=== PATIENT | male | born 1990 | race African-American/Black ===

== ENCOUNTER 2018-04-02 10:36 | Emergency (ER) | payer OTHER, SELFPAY ==
[2018-04-02 10:46] VITALS: BP 100/60; PULSE 98; RESP 14; TEMP 36.7; O2SAT 100; BMI 23.6
--- NOTE | 2018-04-02 12:09 | ED.NAVMDI ---
HPI - Nausea/Vomiting/Diarrhea General Chief complaint: Nausea/Vomiting/Diarrhea Stated complaint: nauseous Time Seen by Provider: 04/02/18 10:43 History of Present Illness HPI Narrative: HPI 27-year-old male with no known pertinent past medical history presents for evaluation of mild nausea without emesis that is been present for one half day. Patient notes that last night he had one loose large watery bowel movement and had a gradual onset of nausea afterwards. Patient is concerned he may vomit later today. Patient denies fevers, chills. Patient continues to be able take liquids well is producing urine at baseline. M/S/F/SocHx notable for: please see HPI; remainder reviewed with patient and in chart. ROS: Negative constitutional, eye, cardiovascular, pulmonary, GI, , MSK, skin, neurologic, psychiatric, endocrine unless noted in the HPI. Exam Gen: Pleasant, non-toxic appearing, resting comfortably. HEENT: NC, AT, PEERL, EOMI, neck supple with full range of movement. Resp: Clear to auscultation bilaterally, normal work of breathing, no accessory muscle usage. Card: Regular rate and rhythm with no murmurs, rubs, or gallops, extremities warm and well perfused. GI: Non-tender to palpation throughout all quadrants, no focal tenderness at McBurney's point, negative Estevez's sign, non-distended, no rebound or guarding. : No suprapubic tenderness to palpation.No CVA tenderness to percussion bilaterally.Deferred MSK: No visible deformities, strength and tone without visually appreciable deficit. Skin: Normal color with no visible lesions. Neuro: AO x 3, no facial asymmetry, vision and hearing WNL. Psych: Mood and affect appropriate. MDM Previous chart, nursing note, and vitals reviewed. A: 27-year-old male with no known pertinent past medical history presents for evaluation of mild nausea without emesis that is been present for one half day and began after one loose watery bowel movement yesterday.. DDx: viral enteritis, viral gastroenteritis, bacterial gastroenteritis, food poisoning, C. Difficile, dehydration, electrolyte abnormalities, septicemia/bacteremia, DKA, acute appendicitis, inflammatory (Crohn?s vs ulcerative colitis). Evaluation: Given the overall symptom constellation, suspect a viral gastroenteritis. As the patient is without tachycardia or hypotension, continues to have adequate urine output, and is otherwise well appearing laboratory studies are not indicated. Community acquired C. Difficile was also considered, but given the lack of identifiable risk factors and the short duration of symptoms stool studies are not currently indicated. Also considered with septicemia/bacteremia, DKA, acute appendicitis, these are felt to be effectively excluded by the patient?s history, normal respiratory rate, benign abdominal exam, absence of fever, and the patient?s overall well appearance. While no further emergent evaluation is felt to be indicated, the patient was given strict return to care precautions should they develop relevant symptoms. Patient prescribed Zofran and instructed to follow up with their PCP as needed. Impression: nausea, diarrhea (please reference below for remainder of encounter information) Related Data Home Medications Medication Instructions Recorded Confirmed No Known Home Medications 04/02/18 04/02/18 Allergies Allergy/AdvReac Type Severity Reaction Status Date / Time sulfamethoxazole Allergy Intermediate Rash Verified 04/02/18 10:48 [From Bactrim] trimethoprim [From Bactrim] Allergy Intermediate Rash Verified 04/02/18 10:48 [facility] Social History Smoking Status: Never smoker Exam Initial Vital Signs Initial Vital Signs: Vital Signs Temperature 98.1 F 04/02/18 10:46 Pulse Rate 98 H 04/02/18 10:46 Respiratory Rate 14 04/02/18 10:46 Blood Pressure 100/60 04/02/18 10:46 Pulse Oximetry 100 04/02/18 10:46 Course Orders Ordered: ED Orders 04/02/18 11:29 C-Reactive Protein Quant Stat Comprehensive Metabolic Panel Stat Erythrocyte Sedimentation Rate Stat Lipase Stat Vital Signs - 8 hr 04/02/18 10:46 Temperature 98.1 F Pulse Rate 98 H Respiratory Rate 14 Blood Pressure 100/60 Pulse Oximetry 100 Discharge Plan Departure Prescriptions: No Action No Known Home Medications RF: 0
[2018-04-02 12:28] VITALS: BP 119/43; PULSE 62; RESP 20; TEMP 36.6; O2SAT 100
== END 2018-04-02 12:29 | disposition home or self-care (01) ==
PROVIDERS: Emergency Provider Emergency Medicine
DX: R11.0 Nausea (principal); R19.7 Diarrhea, unspecified
CPT/HCPCS: 99282